=== PATIENT | female | born 1965 | race Hispanic/Latino ===

== ENCOUNTER 2020-01-24 12:05 | Emergency (ER) | payer MEDICAID ==
[2020-01-24 12:19] VITALS: BP 101/64
--- NOTE | 2020-01-24 12:50 | Emergency Department Report ---
ED Fall HPI - General Chief Complaint: Extremity Injury, Lower Stated Complaint: ANKLE PAIN Time Seen by Provider: 01/24/20 12:23 Source: patient Mode of arrival: Ambulatory - History of Present Illness Initial Comments: Is a pleasant 54-year-old female presents emerged department chief complaint of bilateral ankle pain after a ground-level fall 1 week ago. Patient reports she has a history of multiple syncopal episodes and thinks she may have had another syncopal episode. She reports she initially inverted her right ankle and fell then while trying to get up inverted her left ankle which she has had surgery on for previous fracture. She reports the pain is 6 out of 10 aggravated with movement and weight bearing. There are no alleviating factors. - Related Data Previous Rx's Medication Instructions Recorded Last Taken Type Acetaminophen [Mapap] 325 mg PO Q6HR #30 tablet 01/24/20 Unknown Rx Allergies Allergy/AdvReac Type Severity Reaction Status Date / Time diclofenac Allergy Swelling Verified 01/24/20 12:12 ibuprofen Allergy Rash Verified 01/24/20 12:12 ED Review of Systems ROS: Stated complaint: ANKLE PAIN Other details as noted in HPI Comment: All other systems reviewed and negative Constitutional: denies: chills, fever Eyes: denies: eye pain, eye discharge, vision change ENT: denies: ear pain, throat pain Respiratory: denies: cough, shortness of breath, wheezing Cardiovascular: denies: chest pain, palpitations Endocrine: no symptoms reported Gastrointestinal: denies: abdominal pain, nausea, diarrhea Genitourinary: denies: urgency, dysuria, discharge Musculoskeletal: as per HPI, arthralgia. denies: back pain, joint swelling Skin: denies: rash, lesions Neurological: denies: headache, weakness, paresthesias Psychiatric: denies: anxiety, depression Hematological/Lymphatic: denies: easy bleeding, easy bruising ED Past Medical Hx - Past Medical History Previous Medical History?: Yes Hx Hypertension: Yes Additional medical history: CAD - Surgical History Past Surgical History?: Yes Hx Coronary Stent: Yes - Social History Smoking Status: Current Every Day Smoker - Medications Home Medications: Home Medications Medication Instructions Recorded Confirmed Last Taken Type Acetaminophen [Mapap] 325 mg PO Q6HR #30 tablet 01/24/20 Unknown Rx ED Physical Exam - General Limitations: No Limitations General appearance: alert, in no apparent distress - Head Head exam: Present: atraumatic, normocephalic - Eye Eye exam: Present: normal appearance, PERRL, EOMI Pupils: Present: normal accommodation - ENT ENT exam: Present: normal exam, normal orophraynx, mucous membranes moist - Neck Neck exam: Present: normal inspection, full ROM. Absent: tenderness, meningismus - Respiratory Respiratory exam: Present: normal lung sounds bilaterally. Absent: respiratory distress, wheezes, rales, rhonchi, stridor - Cardiovascular Cardiovascular Exam: Present: regular rate, normal rhythm, normal heart sounds. Absent: systolic murmur, diastolic murmur, rubs, gallop - GI/Abdominal GI/Abdominal exam: Present: soft, normal bowel sounds. Absent: distended, tenderness, guarding, rebound, rigid - Extremities Exam Extremities exam: Present: normal inspection, full ROM, tenderness (Tenderness to the lateral malleolus bilaterally. Soft tissue swelling to both ankles laterally.). Absent: calf tenderness (No posterior calf tenderness, negative Homans sign bilaterally.) - Back Exam Back exam: Present: normal inspection, full ROM. Absent: tenderness, CVA tenderness (R), CVA tenderness (L) - Neurological Exam Neurological exam: Present: alert, oriented X3, normal gait. Absent: motor sensory deficit - Psychiatric Psychiatric exam: Present: normal affect, normal mood - Skin Skin exam: Present: warm, dry, intact, normal color. Absent: rash ED Course Vital Signs 01/24/20 12:16 Temperature 98.3 F Pulse Rate 77 Respiratory 18 Rate Blood Pressure 101/64 O2 Sat by Pulse 98 Oximetry ED Medical Decision Making - Radiology Data Radiology results: report reviewed, image reviewed XRay Report Signed Patient: JUAN DAVID DALAL MR#: [id number] : 1965 Acct:[id number] Age/Sex: 54 / F ADM Date: 01/24/20 Loc: ED Attending Dr: Ordering Physician: JEAN SKELTON Date of Service: 01/24/20 Procedure(s): XR ankle 3+V LT Accession Number(s): [id number] cc: JEAN SKELTON Fluoro Time In Minutes: LEFT ANKLE 3 VIEWS INDICATION / CLINICAL INFORMATION: Fall, left ankle pain. COMPARISON: None available. FINDINGS: BONES/JOINT(S): No acute fracture or subluxation. Well-corticated chronic appearing avulsion injury of the tip of the lateral malleolus. SOFT TISSUES: No significant abnormality. ADDITIONAL FINDINGS: None. Signer Name: aNthan Devries MD Signed: 01/24/2020 1:20 PM Workstation Name: [id number] Findings [facility] [address] [place] [address] XRay Report Signed Patient: JUAN DAVID DALAL MR#: [id number] : 1965 Acct:[id number] Age/Sex: 54 / F ADM Date: 01/24/20 Loc: ED Attending Dr: Ordering Physician: JEAN SKELTON Date of Service: 01/24/20 Procedure(s): XR ankle 3+V RT Accession Number(s): [id number] cc: JEAN SKELTON Fluoro Time In Minutes: RIGHT ANKLE 3 VIEWS INDICATION / CLINICAL INFORMATION: Fall, right ankle pain. COMPARISON: None available. FINDINGS: BONES/JOINT(S): No acute fracture or subluxation. No significant degenerative changes. SOFT TISSUES: Soft tissue swelling in the lateral ankle. ADDITIONAL FINDINGS: None. - Medical Decision Making X-ray showed no acute fracture or dislocation. Left ankle showed a chronic appearing old injury. Recommended rest ice compression elevation and Tylenol for pain return to emerge department any change or worsening symptoms. She verbalized understanding the diagnosis, treatment plan and follow-up i nstructions will give orthopedic follow-up. - Differential Diagnosis strain, sprian, fracture Critical care attestation.: If time is entered above; I have spent that time in minutes in the direct care of this critically ill patient, excluding procedure time. ED Disposition Clinical Impression: Ankle sprain Qualifiers: Encounter type: initial encounter Involved ligament of ankle: unspecified ligament Laterality: right Qualified Code(s): S93.401A - Sprain of unspecified ligament of right ankle, initial encounter Disposition: -01 TO HOME OR SELFCARE Is pt being admited?: No Condition: Stable Instructions: Ankle Sprain (ED) Prescriptions: Acetaminophen [Mapap] 325 mg PO Q6HR #30 tablet Referrals: BROOK GRACE MD [Primary Care Provider] - 3-5 Days Time of Disposition: 13:53
--- NOTE | 2020-01-24 13:24 | XRay Report ---
LEFT ANKLE 3 VIEWS INDICATION / CLINICAL INFORMATION: Fall, left ankle pain. COMPARISON: None available. FINDINGS: BONES/JOINT(S): No acute fracture or subluxation. Well-corticated chronic appearing avulsion injury o f the tip of the lateral malleolus. SOFT TISSUES: No significant abnormality. ADDITIONAL FINDINGS: None. Signer Name: Nathan Devries MD Signed: 01/24/2020 1:20 PM Workstation Name: [id number]
--- NOTE | 2020-01-24 13:25 | XRay Report ---
RIGHT ANKLE 3 VIEWS INDICATION / CLINICAL INFORMATION: Fall, right ankle pain. COMPARISON: None available. FINDINGS: BONES/JOINT(S): No acute fracture or subluxation. No significant degenerative changes. SOFT TISSUES: Soft tissue swelling in the lateral ankle. ADDITIONAL FINDINGS: None. Signer Name: Nathan Devries MD Signed: 01/24/2020 1:20 PM Workstation Name: [id number]
== END 2020-01-24 14:10 | disposition home or self-care (01) ==
LOC: ED 12:05
DX: S93.402A Sprain of unspecified ligament of left ankle, initial encounter (principal); S93.401A Sprain of unspecified ligament of right ankle, initial encounter; F17.200 Nicotine dependence, unspecified, uncomplicated; I10 Essential (primary) hypertension; Z98.890 Other specified postprocedural states; Z79.899 Other long term (current) drug therapy; Z88.8 Allergy status to other drugs, medicaments and biological substances; W18.30XA Fall on same level, unspecified, initial encounter; Y93.89 Activity, other specified; Y92.89 Other specified places as the place of occurrence of the external cause; Y99.8 Other external cause status

== ENCOUNTER 2020-04-13 09:17 | Emergency (ER) | payer MEDICARE ==
[2020-04-13 09:33] VITALS: BP 124/78
--- NOTE | 2020-04-13 12:26 | Emergency Department Report ---
ED Lower Extremity HPI - General Chief Complaint: Extremity Injury, Lower Stated Complaint: LEFT FOOT INJURY Time Seen by Provider: 04/13/20 10:56 Source: patient Mode of arrival: Ambulatory Limitations: No Limitations - History of Present Illness Initial Comments: 55-year-old female presents emerge department complaining of pain to the foot and ankle while she was walking and twisted her ankle a couple days ago reports having pain and swelling to the area since the injury. No numbness or tingling. MD Complaint: ankle injury, foot injury -: Gradual Injury: Ankle: Left, Foot: Left Type of Injury: inversion Place: home Severity: mild, moderate Worsens With: movement, palpation Context: walking Associated Symptoms: swelling, able to partially bear weight. denies: numbness, unable to bear weight, ambulatory - Related Data Previous Rx's Medication Instructions Recorded Last Taken Type Acetaminophen [Mapap] 325 mg PO Q6HR #30 tablet 01/24/20 Unknown Rx traMADoL [Ultram] 50 mg PO Q6HR PRN #14 tablet 04/13/20 Unknown Rx Allergies Allergy/AdvReac Type Severity Reaction Status Date / Time diclofenac Allergy Swelling Verified 01/24/20 12:12 ibuprofen Allergy Rash Verified 01/24/20 12:12 ED Review of Systems ROS: Stated complaint: LEFT FOOT INJURY Other details as noted in HPI Comment: All other systems reviewed and negative ED Past Medical Hx - Past Medical History Hx Hypertension: Yes Additional medical history: CAD - Surgical History Hx Coronary Stent: Yes Additional Surgical History: left foot, right knee, right shoulder, both eyes, hysterectomy, gallbladder - Social History Smoking Status: Current Every Day Smoker - Medications Home Medications: Home Medications Medication Instructions Recorded Confirmed Last Taken Type Acetaminophen [Mapap] 325 mg PO Q6HR #30 tablet 01/24/20 Unknown Rx traMADoL [Ultram] 50 mg PO Q6HR PRN #14 tablet 04/13/20 Unknown Rx ED Physical Exam - General Limitations: No Limitations General appearance: alert, in no apparent distress - Head Head exam: Present: atraumatic, normocephalic - Eye Eye exam: Present: normal appearance, PERRL, EOMI Pupils: Present: normal accommodation - ENT ENT exam: Present: mucous membranes moist - Neck Neck exam: Present: normal inspection - Respiratory Respiratory exam: Present: normal lung sounds bilaterally. Absent: respiratory distress - Cardiovascular Cardiovascular Exam: Present: regular rate, normal rhythm. Absent: systolic murmur, diastolic murmur, rubs, gallop - GI/Abdominal GI/Abdominal exam: Present: soft, normal bowel sounds - Extremities Exam Extremities exam: Present: normal inspection - Back Exam Back exam: Present: normal inspection. Absent: CVA tenderness (R), CVA tenderness (L) - Neurological Exam Neurological exam: Present: alert, oriented X3, CN II-XII intact - Psychiatric Psychiatric exam: Present: normal affect, normal mood. Absent: flat affect, manic - Skin Skin exam: Present: warm, dry, intact, normal color. Absent: rash ED Course Vital Signs 04/13/20 09:30 Temperature 98.0 F Pulse Rate 73 Respiratory 19 Rate Blood Pressure 124/78 O2 Sat by Pulse 96 Oximetry Critical care attestation.: If time is entered above; I have spent that time in minutes in the direct care of this critically ill patient, excluding procedure time. ED Disposition Clinical Impression: Ankle sprain Is pt being admited?: No Does the pt Need Aspirin: No Condition: Stable Instructions: RICE Therapy (ED), Ice Pack Application (ED), Crutch Instructions (ED) Prescriptions: traMADoL [Ultram] 50 mg PO Q6HR PRN #14 tablet PRN Reason: Pain Referrals: PRIMARY CARE, [Primary Care Provider] - 3-5 Days [facility] [Provider Group] - 3-5 Days
--- NOTE | 2020-04-13 13:16 | XRay Report ---
LEFT ANKLE 3 VIEWS INDICATION / CLINICAL INFORMATION: ankle pain and swelling. COMPARISON: 01/24/2020 FINDINGS: Heterotopic calcification seen inferior to the lateral malleolus unchanged from 01/24/2020. Small Achi lles spur. No other significant skeletal abnormality. No interval change from the prior study Signer Name: Abdirahman Laurent MD FACR Signed: 04/13/2020 1:11 PM Workstation Name: [id number]
--- NOTE | 2020-04-13 13:17 | XRay Report ---
LEFT FOOT 3 VIEWS INDICATION / CLINICAL INFORMATION: pain. COMPARISON: None available. FINDINGS: Small Achilles spur. Moderate degenerative change in the first metatarsophalangeal joint. No other si gnificant skeletal abnormality. Signer Name: Abdirahman Laurent MD FACBlanca Signed: 04/13/2020 1:12 PM Workstation Name: [id number]
== END 2020-04-13 14:19 | disposition home or self-care (01) ==
LOC: ED 09:17
DX: S93.402A Sprain of unspecified ligament of left ankle, initial encounter (principal); I10 Essential (primary) hypertension; F17.200 Nicotine dependence, unspecified, uncomplicated; Z90.710 Acquired absence of both cervix and uterus; Z98.890 Other specified postprocedural states; Z79.899 Other long term (current) drug therapy; Z88.8 Allergy status to other drugs, medicaments and biological substances; X50.1XXA Overexertion from prolonged static or awkward postures, initial encounter; Y93.89 Activity, other specified; Y92.89 Other specified places as the place of occurrence of the external cause; Y99.8 Other external cause status